=== PATIENT | male | born 1990 | race Caucasian/White ===

== ENCOUNTER 2021-08-03 19:46 | Emergency (ER) | payer MEDICAID ==
[~2021-08-03] VITALS: Ht 188 cm; Wt 74.8 kg
--- NOTE | 2021-08-03 21:35 | NUR ---
PT AMBULATED TO ER W/ C/O LT HAND LACERATION. DR. LUEVANO AT BEDSIDE, MSE IN PROGRESS.
[2021-08-03] MEDS ORDERED: LIDOCAINE HCL 1% 20 ML VIAL IJ ONE (22:00)
--- NOTE | 2021-08-03 23:11 | NUR ---
Patient discharged to home in stable condition. Denies any pain/discomfort upon discharge. Written and verbal after care instructions given. Patient verbalizes understanding of instructions. Stressed follow up or return to ER for worsening s/s. Steady gait.
[2021-08-03 23:20] VITALS: BP 114/62
== END 2021-08-03 23:05 | disposition home or self-care (01) ==
LOC: ER 19:49
DX: S61.012A Laceration without foreign body of left thumb without damage to nail, initial encounter (principal); W26.0XXA Contact with knife, initial encounter; Y93.G3 Activity, cooking and baking; Y92.89 Other specified places as the place of occurrence of the external cause
CPT/HCPCS: 12001; 99282; J3490; A4663